=== PATIENT | male | born 1990 ===

== ENCOUNTER 2017-07-29 14:50 | Emergency (ER) | payer OTHER ==
[2017-07-29 15:04] VITALS: BP 114/70; PULSE 84; RESP 16; TEMP 97.6; O2SAT 99
[2017-07-29] MEDS ORDERED: Dexamethasone 4 mg/1 ml IM STA (15:31)
--- NOTE | 2017-07-29 15:35 | ED PDOC ---
HPI: Abdomen Time Seen by Provider: 07/29/17 15:19 Chief Complaint (Nursing): Abnormal Skin Integrity Chief Complaint (Provider): Generalized Rash History Per: Patient Onset/Duration Of Symptoms: Days (x1) Outside of [place] travel?: No Current Symptoms Are (Timing): Still Present Additional Complaint(s): 27 year old male presents to the ED with bodily rash. The patient states that he has not used any new soaps or lotions. he reports that when his symptoms first began he took benadryl but it only offered mild relief before the rash returned. The patient states that 1 month ago he had similar symptoms but it was not as severe and it resolved without treatment. Patient also states that he has noticed some fever and chills associated with the rash. Past Medical History Reviewed: Nursing Documentation, Vital Signs Vital Signs: Last Vital Signs Temp 97.6 F 07/29/17 15:01 Pulse 84 07/29/17 15:01 Resp 16 07/29/17 15:01 BP 114/70 07/29/17 15:01 Pulse Ox 99 07/29/17 15:35 - Medical History PMH: No Chronic Diseases - Surgical History Surgical History: No Surg Hx - Family History Family History: States: Unknown Family Hx - Living Arrangements Living Arrangements: With Family - Home Medications Home Medications: Ambulatory Orders Medication Instructions Recorded predniSONE [Prednisone] 40 mg PO DAILY #10 tab 07/29/17 - Allergies Allergies/Adverse Reactions: Allergies Allergy/AdvReac Type Severity Reaction Status Date / Time No Known Allergies Allergy Verified 07/29/17 15:01 Review of Systems Constitutional: Positive for: Fever, Chills Skin: Positive for: Rash (generalized rash about the body) Physical Exam - Reviewed Nursing Documentation Reviewed: Yes Vital Signs Reviewed: Yes - Physical Exam Appears: Positive for: Non-toxic, No Acute Distress Head Exam: Positive for: NORMAL INSPECTION Skin: Positive for: Normal Color, Warm, Dry. Negative for: Rash (diffusely erythematous rash with some confluence. Ventral aspect of forearms spared. Rash is consistent with topical agents.; no open wounds; No blisters.) Eye Exam: Positive for: Normal appearance, EOMI, PERRL. Negative for: Nystagmus Cardiovascular/Chest: Positive for: Regular Rate, Rhythm, Chest Non Tender. Negative for: Tachycardia Respiratory: Positive for: Normal Breath Sounds. Negative for: Rales, Rhonchi, Wheezing, Respiratory Distress Neurologic/Psych: Positive for: Alert, Oriented, Gait. Negative for: Motor/ Sensory Deficits - ECG O2 Sat by Pulse Oximetry: 99 (RA) Pulse Ox Interpretation: Normal Medical Decision Making Medical Decision Makin Initial Impression 27 y/o male presenting with allergic dermatitis Initial Plan: * Decadron IM 600mg INJ * Reevaluation Documented by Corry Gayle acting as a scribe for Harrison Reed DO. All medical record entries made by the Scribe were at my direction and personally dictated by me. I have reviewed the chart and agree that the record accurately reflects my personal performance of the history, physical exam, medical decision making, and the department course for this patient. I have also personally directed, reviewed, and agree with the discharge instructions and disposition. Disposition - Clinical Impression Clinical Impression: Contact dermatitis - Patient ED Disposition Is Patient to be Admitted: No - Disposition Disposition: Routine/Home Disposition Time: 15:40 Condition: STABLE Additional Instructions: Take Benadryl twice daily until improved. NO PRODUCTS on skin for 2 days. Then only hypo-allergenic products with no fragrance. Prescriptions: predniSONE [Prednisone] 40 mg PO DAILY #10 tab Forms: [employer] [facility] (Nepali)
== END 2017-07-29 16:00 | disposition home or self-care (01) ==
LOC: H.ER 14:50
DX: L25.9 Unspecified contact dermatitis, unspecified cause (principal)
CPT/HCPCS: 96372; 99282; J1100